=== PATIENT | male | born 1980 ===

== ENCOUNTER 2023-08-12 19:08 | Emergency (ER) | payer OTHER, SELFPAY ==
[2023-08-12 19:09] VITALS: BP 138/84
--- NOTE | 2023-08-12 19:24 | ED.GENMED ---
History of Present Illness
General
Chief Complaint: Musculo-Skeletal Complaint
Source: patient
Time Seen by Provider: 08/12/23 19:12
Travel History
Have you had any contact with someone who has COVID-19?: No
Do you have any symptoms of coronavirus? Fever > 100 degrees, chills, cough, shortness of breath, sore throat, loss of taste or smell, muscle aches, or headache?: No
History of Present Illness
History of Present Illness:
42-year-old male presenting to the emergency department for evaluation of right knee pain/injury after he was playing basketball and felt a pop and pain in his right patella. Patient states he feels as if he cannot flex the knee due to it making
the patella feel like it is. Patient states he is not in much pain as long as he continues to hold his right leg continuously extended. He notes a previous history of left knee patellar rupture. Denies any previous history of right knee injury
Past History
Past History
ED Past Medical History: None
ED Past Surgical History: Orthopedic
Social History
Tobacco: Non-smoker
Alcohol: Occasional
Drug: None
Personal:
Living: with family
Employment: Employed
Review of Systems
Review of Systems
All Other Systems: ROS reviewed and negative except as documented in HPI and ROS
Phy Exam
Physical Exam
Physical Exam:
GENERAL: Alert , in no apparent distress
EYE: conjunctiva clear
Head: Normocephalic atraumatic
NECK: Supple,
ENT: mmm.
LUNGS: no acute respiratory distress
NEUROLOGICAL: Alert and oriented
SKIN: Warm and dry, skin intact.
MUSCULOSKELETAL: Right lower extremity: There is soft tissue swelling of the right knee with laxity over the right patellar tendon with concern for patella tendon rupture. Patient is able to fully extend the right knee but limited range of motion
with knee flexion. Remainder of extremity is neurovascularly intact and within normal limits
PSYCH: Normal and appropriate interaction.
Scores
Heart Failure Risk
Heart Failure Risk Score: Not Applicable
Heart Score for Chest Pain Patients
STEMI patient?: Not applicable
Withdrawal Assessment of Alcohol
Withdrawal Assessment Completed?: Not applicable
Course
Orders/Labs/Results
Orders:
Orders
08/12/23 19:23
Crutches-Treatment ONCE
Knee Immobilizer Right-Treatme ONCE
CR Knee- Right 4 Or More View* Urgent
Comment:
Reason For Exam: pain, suspected patella tendon rupture
Vital Signs
Initial and Last Documented VS:
Initial Vital Signs
Temp Pulse Resp BP Pulse Ox
97.6 F 104 16 138/84 97
08/12/23 19:09 08/12/23 19:09 08/12/23 19:09 08/12/23 19:09 08/12/23 19:09
Last Documented Vital Signs
Temp Pulse Resp BP Pulse Ox
97.6 F 104 16 138/84 97
08/12/23 19:09 08/12/23 19:09 08/12/23 19:09 08/12/23 19:09 08/12/23 19:09
MDM/Problems Addressed
Differential Diagnosis Includes:
Patella tendon rupture, quadriceps tendon rupture, patellar dislocation/subluxation, patellar fracture
MDM/Problems Addressed:
42-year-old male present emergency department for evaluation of right knee injury. Based off physical exam I am most concerned for right patella tendon rupture. Will order x-ray. Knee immobilizer and crutches ordered. Will provide with
information for orthopedics to follow-up as an outpatient. Anticipate discharge home following.
*Radiology
Radiology exam reviewed: preliminary read by ED provider (High-riding patella without fracture)
*Pulse Oximetry
Patient hypoxic: no
*Critical Care Note
Total Time (30-74mins, 75-104mins- exclusive of procedures): Not Applicable
Patient Management
Escalation/DeEscalation of care consider admission/obs:
X-ray without evidence for fracture but does show a high riding patella which would be consistent with concern for patella tendon rupture. Patient was provided with information for orthopedist. Stable for discharge and outpatient management.
ED Attending Note
-
Portions of this chart may have been created with voice recognition software.� Occasional wrong word or��sound alike� substitutions may have occurred due to the inherent limitations of voice recognition software.
Discharge Plan
Departure
Patient Disposition: Home (Routine Discharge)
Date of Disposition: 08/12/23
Time of Disposition: 20:00
Patient with high blood pressure during this ER visit?: No
Discharge Problem:
Rupture of right patellar tendon
Instructions: Quadriceps and Patellar Tendon Injuries
Referrals:
Hunter Gomez MD [Active] - (Ortho - Please call for appointment)
UNKNOWN - PT DOES,NOT KNOW [Family Provider] -
Interventions
Interventions:
*Risk Screen - Suicide Last Done: 08/12/23 19:09
*General Assessment Last Done: 08/12/23 19:09
*Neglect/Abuse Screening Last Done: 08/12/23 19:09
*ED COVID-19 Vaccine History Last Done: 08/12/23 19:09
== END 2023-08-12 20:14 | disposition home or self-care (01) ==
LOC: EMR 19:08
PROVIDERS: EMERGENCY PHYSICIAN Emergency Medicine
DX: M25.561 Pain in right knee (principal); S76.111A Strain of right quadriceps muscle, fascia and tendon, initial encounter; X50.1XXA Overexertion from prolonged static or awkward postures, initial encounter; Y93.67 Activity, basketball
CPT/HCPCS: 99283; 73564